=== PATIENT | female | born 1980 | race Caucasian/White ===

== ENCOUNTER 2018-03-14 08:38 | Emergency (ER) | payer BC, OTHER ==
[~2018-03-14] VITALS: Ht 162.6 cm; Wt 85.3 kg
[2018-03-14 08:40] VITALS: BP_SYST 134
[2018-03-14] MEDS ORDERED: MORPHINE 4 MG/ML INJ. SYRINGE IM ONE (09:15)
[2018-03-14] MEDS ORDERED: ONDANSETRON HCL 4 MG/2 ML VIAL IM ONE (09:15)
[2018-03-14] MEDS ORDERED: ONDANSETRON 4 MG ODT TAB ONE (09:24)
[2018-03-14] MEDS ORDERED: ONDANSETRON 4 MG ODT TAB PO ONE (09:30)
== END 2018-03-14 10:45 | disposition home or self-care (01) ==
LOC: MERGE 08:38 → SED 08:38
DX: G89.29 Other chronic pain (principal); M54.5 Low back pain
CPT/HCPCS: 96372; 99283; J2270; J2405; Q0162